=== PATIENT | male | born 1960 | race Caucasian/White ===

== ENCOUNTER 2018-02-25 18:04 | Emergency (ER) | payer BC ==
--- OUTSIDE RECORDS SUMMARY | 2018-02-25 18:20 | XMS REPORT ---
:1960 External Reference #:[id number] Author Organization [facility] Address [address] [facility]/[address] [place] [address] Phone [phone] Care Team Providers Name Role Phone Guillermina Villagomez MD Care Team Information [employer] Unavailable Payers Type Date Identification Numbers Payment Provider Subscriber Commercial Effective: Policy Number: BS [employer] Amrit Cates 2018 [id number] PayID: [id number] [address] [address] [place] [address] Problems Date Description Provider Status Onset: 09/16/2012 Chronic pansinusitis DavidFredy PEARL TECHNICIAN Active Onset: 09/16/2012 Low back pain Fredy Hernandez PEARL TECHNICIAN Active Onset: 09/16/2012 Degenerative joint disease involving Fredy Hernandez PEARL TECHNICIAN Active multiple joints Onset: 11/04/2014 Indigestion Guillermina Villagomez M.D. Active Onset: 11/04/2014 Peptic reflux disease Guillermina Villagomez M.D. Active Onset: 11/04/2014 Benign essential hypertension Guillermina Villagomez M.D. Active Onset: 11/04/2014 Idiopathic peripheral neuropathy Guillermina Villagomez M.D. Active Onset: 11/04/2014 Pain in limb Guillermina Villagomez M.D. Active Onset: 11/04/2014 Shoulder joint pain Guillermina Villagomez M.D. Active Onset: 11/04/2014 Neck pain Guillermina Villagomez M.D. Active Onset: 11/04/2014 Degeneration of lumbar intervertebral Guillermina Villagomez M.D. Active disc Family History Date Family Member(s) Problem(s) Comments Father due to Natural Causes () - 73 YO Mother 73 Mother Unknown Children 3 Social History Type Date Description Comments Marital Status Has been 1 time Occupation [employer] ETOH Use Rarely consumes alcohol Smoking Patient has never smoked IS AROUND OTHERS WHO SMOKE Daily Caffeine Consumes on average 4 cups of regular coffee per day Allergies, Adverse Reactions, Alerts Date Description Reaction Status Severity Comments 09/16/2012 NKDA active Medications Medication Date Status Form Strength Qnty SIG Indications Ordering Provider Prednisone 02/20/20 Hx Tablets 20mg 18tabs 3 tab by M51.37 Hernando, 18 - mouth Ahmad M., 02/28/20 daily 3 M.D. 18 days, then 2 tab daily x 3 d , then 1 tab daily 3d Hydrocodone-Ac 01/18/20 Active Tablets 10-325mg 90tabs 1 tab by M51.37 Hernando, etaminophen 18 mouth Ahmad M., three M.D. times a day as needed M79.605 M79.673 Sertraline HCL 03/29/2017 Active Tablets 50mg 90tabs take one F43.21 Hernando, tablet by Ahmad mouth Una M.Tin every day Ibu 11/14/2016 Active Tablets 800mg 90tabs Take One M51.37 Hernando, Tablet By Ahmad Mouth Oriana Heart.DKeiry Every 8 Hours With Food as Needed For Pain Gabapentin 01/18/2016 Active Capsules 300mg 90caps take one M54.17 Hernando, capsule by Ahmad mouth Una M.DKeiry twice a day Omeprazole 10/14/[address] 20mg 60caps Take Two K21.0 Hernando, Capsules Ahmad By Mouth M. M.D. Every Day Losartan 11/11/2014 Active Tablets 100-25 90tabs tab one by I10 Hernando, Potassium/Hydrochl mg mouth Ahmad orothiazide every in M., M.D. the morning Cyclobenzaprine 09/30/2014 Active Tablets 10mg 90tabs take one M51.37 Hernando, HCL tablet by Ahmad mouth Una MKeiryDKeiry three times a day as needed M54.5 M79.606 Prednisone Hx Tablets 20mg 18tabs 3 tab by mouth M79.673 Guillermina Villagomez 8 - daily 3 days, M., M.D. then 2 tab 8 daily x 3 d , then 1 tab daily 3d Zoloft Hx Tablets 50mg 30tabs 1 by mouth F43.21 Guillermina Villagomez 7 - every day M., M.D. 7 Prednisone Hx Tablets 20mg 18tabs 3 tab by mouth M51.37 Guillermina Villagomez 6 - daily 3 days, M., M.D. then 2 tab 6 daily x 3 d , then 1 tab daily 3d Omeprazole Hx Capsules DR 40mg 90caps 1 by mouth K21.0 Guillermina Villagomez 5 - every day M., M.D. 6 Gabapentin Hx Capsules 100mg 180caps tab 1-2 by M54.17 Guillermina Villagomez 5 - mouth three M., M.D. times a day [address] 40mg 30tabs 1 by mouth 530.11 Guillermina Villagomez 5 - every day M., M.D. 5 536.8 Hydrocodone-Acetaminophen 11/04/2014 Hx Tablets 10-325mg 150tabs 1-2 tab M79.606 Hernando, - by Ahmad 11/03/2016 mouth M., every 4 M.D. hours as needed M54.2 M51.37 Benicar HCT 10/15/2014 - Hx Tablets 40-25mg 90tabs tab one by 401.1 Hernando, 11/11/2014 mouth Ahmad M., every day M.D. No Active 09/30/2014 - Hx Unknown Medications 09/30/2014 Hydrocodone-Acet 09/30/2014 - Hx Tablets 7.5-325mg 90tabs tab one by 729.5 Hernando aminophen 11/04/2014 mouth Ahmad M., three M.D. times a day as needed 724.2 723.1 Benicar HCT 09/30/2014 - Hx Tablets 40-12.5mg Samples 1 by 401.1 Hernando, 10/15/2014 mouth Guillermina Heart, every day Sukhi Amoxicillin 09/16/2012 - Hx Tablets 500mg 28tabs 1Tab PO 473.8 Hernando, 09/30/2014 bid Guillermina Heart M.D. No Active 09/15/2012 Hx [facility], Medications Guillermina Heart M.D. Immunizations CPT Code Status Date Vaccine Lot # [id number] Given 06/15/2015 Flu Vaccine [id number] Given 09/29/2007 TDaP Vital Signs Date Vital Result Comment 02/19/2018 BP Systolic 120 mmHg BP Diastolic 78 mmHg Height 65 inches 5'5" Weight 193.00 lb BMI (Body Mass Index) 32.1 kg/m2 Heart Rate 78 /min 01/17/2018 BP Systolic 120 mmHg BP Diastolic 80 mmHg Height 65 inches 5'5" Weight 190.00 lb BMI (Body Mass Index) 31.6 kg/m2 Heart Rate 109 /min Respiratory Rate 16 /min 09/06/2017 BP Systolic 126 mmHg BP Diastolic 64 mmHg Height 65 inches 5'5" Weight 192.00 lb BMI (Body Mass Index) 31.9 kg/m2 Heart Rate 99 /min Respiratory Rate 16 /min 02/13/2017 BP Systolic 120 mmHg BP Diastolic 78 mmHg Height 65 inches 5'5" Weight 174.00 lb BMI (Body Mass Index) 29.0 kg/m2 Heart Rate 106 /min Respiratory Rate 16 /min 11/14/2016 BP Systolic 110 mmHg BP Diastolic 66 mmHg Height 65 inches 5'5" Weight 188.00 lb BMI (Body Mass Index) 31.3 kg/m2 Heart Rate 116 /min Respiratory Rate 16 /min 03/13/2016 BP Systolic 120 mmHg BP Diastolic 72 mmHg Height 65 inches 5'5" Weight 179.00 lb BMI (Body Mass Index) 29.8 kg/m2 Heart Rate 80 /min Body Temperature 97.1 F 02/15/2016 BP Systolic 130 mmHg BP Diastolic 74 mmHg Height 65 inches 5'5" Weight 170.00 lb BMI (Body Mass Index) 28.3 kg/m2 Heart Rate 74 /min 01/18/2016 BP Systolic 110 mmHg BP Diastolic 80 mmHg Height 65 inches 5'5" Weight 173.00 lb BMI (Body Mass Index) 28.8 kg/m2 Heart Rate 88 /min Respiratory Rate 16 /min 12/22/2015 BP Systolic 124 mmHg BP Diastolic 70 mmHg Height 65.25 inches 5'5.25" Weight 174.00 lb BMI (Body Mass Index) 28.7 kg/m2 Heart Rate 90 /min Respiratory Rate 16 /min 11/15/2015 BP Systolic 126 mmHg BP Diastolic 74 mmHg Height 65.25 inches 5'5.25" Weight 180.00 lb BMI (Body Mass Index) 29.7 kg/m2 Heart Rate 88 /min Respiratory Rate 16 /min 10/14/2015 BP Systolic 126 mmHg BP Diastolic 72 mmHg Height 65.25 inches 5'5.25" Weight 182.00 lb BMI (Body Mass Index) 30.1 kg/m2 Heart Rate 96 /min Respiratory Rate 20 /min 08/15/2015 BP Systolic 122 mmHg BP Diastolic 86 mmHg Height 65.25 inches 5'5.25" Weight 184.00 lb BMI (Body Mass Index) 30.4 kg/m2 Heart Rate 88 /min Respiratory Rate 20 /min 07/20/2015 BP Systolic 126 mmHg BP Diastolic 84 mmHg Height 65.25 inches 5'5.25" Weight 177.00 lb BMI (Body Mass Index) 29.2 kg/m2 Heart Rate 80 /min Respiratory Rate 20 /min 06/21/2015 BP Systolic 124 mmHg BP Diastolic 78 mmHg Height 65.25 inches 5'5.25" Weight 172.00 lb BMI (Body Mass Index) 28.4 kg/m2 Heart Rate 80 /min Respiratory Rate 20 /min 06/15/2015 BP Systolic 124 mmHg BP Diastolic 78 mmHg Height 65.25 inches 5'5.25" Weight 172.00 lb BMI (Body Mass Index) 28.4 kg/m2 Heart Rate 88 /min Body Temperature 99.2 F Respiratory Rate 20 /min 05/04/2015 BP Systolic 132 mmHg BP Diastolic 84 mmHg Height 65.25 inches 5'5.25" Weight 170.00 lb BMI (Body Mass Index) 28.1 kg/m2 Heart Rate 88 /min Respiratory Rate 16 /min 03/30/2015 BP Systolic 126 mmHg BP Diastolic 84 mmHg Height 65.25 inches 5'5.25" Weight 169.00 lb BMI (Body Mass Index) 27.9 kg/m2 Heart Rate 80 /min Respiratory Rate 20 /min 02/23/2015 BP Systolic 112 mmHg BP Diastolic 70 mmHg Height 65.25 inches 5'5.25" Weight 161.00 lb BMI (Body Mass Index) 26.6 kg/m2 Heart Rate 100 /min Respiratory Rate 16 /min 01/18/2015 BP Systolic 126 mmHg BP Diastolic 78 mmHg Height 65.25 inches 5'5.25" Weight 167.00 lb BMI (Body Mass Index) 27.6 kg/m2 Heart Rate 88 /min Respiratory Rate 20 /min 12/14/2014 BP Systolic 126 mmHg BP Diastolic 72 mmHg Height 65.25 inches 5'5.25" Weight 163.00 lb BMI (Body Mass Index) 26.9 kg/m2 Heart Rate 76 /min Respiratory Rate 16 /min 11/22/2014 BP Systolic 134 mmHg BP Diastolic 86 mmHg Height 65.25 inches 5'5.25" Weight 156.00 lb BMI (Body Mass Index) 25.8 kg/m2 Heart Rate 88 /min Respiratory Rate 16 /min 11/04/2014 BP Systolic 138 mmHg BP Diastolic 84 mmHg Height 65.25 inches 5'5.25" Weight 157.00 lb BMI (Body Mass Index) 25.9 kg/m2 Heart Rate 96 /min Respiratory Rate 16 /min 09/30/2014 BP Systolic 168 mmHg BP Diastolic 96 mmHg Height 65.25 inches 5'5.25" Weight 162.00 lb BMI (Body Mass Index) 26.7 kg/m2 Heart Rate 100 /min Respiratory Rate 20 /min 09/16/2012 BP Systolic 122 mmHg BP Diastolic 82 mmHg Height 65.25 inches 5'5.25" Weight 165.00 lb BMI (Body Mass Index) 27.2 kg/m2 Heart Rate 90 /min Body Temperature 98.3 F Respiratory Rate 20 /min Results Test Date Test Result H/L Range Note CBC With Diff 02/13/2017 WBC 6.7 10*3/uL (4.1-11.0) RBC 4.91 10*6/uL (4.60-6.10) HGB 15.0 g/dL (13.5-18.0) HCT 44.3 % (41.0-53.0) MCV 90.4 fL (80.0-95.0) MCH 30.5 pg (27.0-32.0) MCHC 33.8 g/dL (32.0-36.0) RDW 14.0 % (10.5-14.5) PLT 355 10*3/uL (150-450) MPV 7.8 fL (7.1-10.7) Neut % 67.0 % (35.0-75.0) Lymph % 20.5 % (16.0-52.0) Aiken % 9.7 % High (0.0-8.0) Eos % 2.0 % (0.0-5.0) Baso % 0.8 % (0.0-4.0) Neut # 4.5 10*3/uL (1.8-7.7) Lymph # 1.4 10*3/uL (1.2-4.8) Aiken # 0.7 10*3/uL (0.0-0.8) Eos # 0.1 10*3/uL (0.0-0.5) Baso # 0.1 10*3/uL (0.0-0.2) CMP 02/13/2017 Sodium 139 mmol/L (136-145) Potassium 3.5 mmol/L Low (3.6-5.2) Chloride 103 mmol/L (100-108) Co2 27 mmol/L (22-31) Anion Gap 9 mmol/L (7-16) Urea Nitrogen 17 mg/dL (7-24) Creatinine 1.01 mg/dL (0.80-1.30) BUN/Creat Ratio 16.8 RATIO (10.0-20.0) Glucose 90 mg/dL (70-99) Calcium 8.9 mg/dL (8.4-10.2) Total Protein 7.1 g/dL (6.4-8.2) Albumin 3.9 g/dL (3.5-4.6) Globulin 3.2 g/dL (2.7-4.3) Alb/Glob Ratio 1.2 RATIO Alkaline Phosphatase 88 U/L (45-117) Bilirubin,Total 0.7 mg/dL (0.0-1.0) Ast (Sgot) 26 U/L (11-39) Alt (SGPT) 40 U/L (12-78) GFR >60 ml/min/1.73m2 (>59) GFR ( Amer) >60 ml/min/1.73m2 (>59) GFR Interpretation <SEE NOTE> 1 Laboratory test finding 02/13/2017 TSH,Ultrasensitive @ 0.682 mIU/L ( 0.360-4.170) Hemoglobin A1c 02/13/2017 Hemoglobin A1c @ 5.4 % (4.0-6.0) Est Average Glucose 108 mg/dL 2 Lipid 02/13/2017 Cholesterol @ 204 mg/dL High (0-200) Triglyceride @ 87 mg/dL (30-200) HDL Cholesterol @ 59 mg/dL (>40) 3 Chol/HDL Ratio 3.5 RATIO 4 LDL Chol (Calc) 128 mg/dL (<130) 5 Laboratory test finding 02/13/2017 25 Hydroxy Vit D @ 25 ng/mL Low (31-100 ) 6 CBC With Diff 02/15/2016 WBC 4.9 10*3/uL (4.1-11.0) RBC 4.73 10*6/uL (4.60-6.10) HGB 13.9 g/dL (13.5-18.0) HCT 43.2 % (41.0-53.0) MCV 91.4 fL (80.0-95.0) MCH 29.5 pg (27.0-32.0) MCHC 32.3 g/dL (32.0-36.0) RDW 14.0 % (10.5-14.5) PLT 324 10*3/uL (150-450) MPV 7.8 fL (7.1-10.7) Neut % 55.8 % (35.0-75.0) Lymph % 31.2 % (16.0-52.0) Aiken % 10.7 % High (0.0-8.0) Eos % 1.1 % (0.0-5.0) Baso % 1.2 % (0.0-4.0) Neut # 2.7 10*3/uL (1.8-7.7) Lymph # 1.5 10*3/uL (1.2-4.8) Aiken # 0.5 10*3/uL (0.0-0.8) Eos # 0.1 10*3/uL (0.0-0.5) Baso # 0.1 10*3/uL (0.0-0.2) CMP 02/15/2016 Sodium 141 mmol/L (136-145) Potassium 4.1 mmol/L (3.6-5.2) Chloride 105 mmol/L (100-108) Co2 31 mmol/L (22-31) Anion Gap 5 mmol/L Low (7-16) Urea Nitrogen 14 mg/dL (7-24) Creatinine 0.91 mg/dL (0.80-1.30) BUN/Creat Ratio 15.4 RATIO (10.0-20.0) Glucose 84 mg/dL (70-99) Calcium 8.9 mg/dL (8.4-10.2) Total Protein 7.0 g/dL (6.4-8.2) Albumin 4.0 g/dL (3.5-4.6) Globulin 3.0 g/dL (2.7-4.3) Alb/Glob Ratio 1.3 RATIO Alkaline Phosphatase 97 U/L (45-117) Bilirubin,Total 0.7 mg/dL (0.0-1.0) Ast (Sgot) 22 U/L (11-39) Alt (SGPT) 48 U/L (12-78) GFR >60 ml/min/1.73m2 (>59) GFR ( Amer) >60 ml/min/1.73m2 (>59) GFR Interpretation <SEE NOTE> 7 Hemoglobin A1c 02/15/2016 Hemoglobin A1c @ 4.9 % (4.0-6.0) Est Average Glucose 94 mg/dL 8 Laboratory test finding 02/15/2016 TSH,Ultrasensitive @ 0.794 mIU/L ( 0.360-4.170) 25 Hydroxy Vit D @ 30 ng/mL Low (31-100) 9 Uric Acid 3.8 mg/dL (3.5-7.2) PSA,Total Screen @ 1.3 ng/mL (0.0-4.0) 10 Laboratory test 07/20/2015 TSH,Ultrasensitive @ 1.030 mIU/L (0.360-4.170 ) finding Lipid 07/20/2015 Cholesterol @ 220 mg/dL High (0-200) Triglyceride @ 116 mg/dL (30-200) HDL Cholesterol @ 72 mg/dL (>40) 11 Chol/HDL Ratio 3.1 RATIO 12 LDL Chol (Calc) 125 mg/dL (<130) 13 CMP 07/20/2015 Sodium 140 mmol/L (136-145) Potassium 4.6 mmol/L (3.6-5.2) Chloride 102 mmol/L (100-108) Co2 31 mmol/L (22-31) Anion Gap 7 mmol/L (7-16) Urea Nitrogen 15 mg/dL (7-24) Creatinine 1.06 mg/dL (0.80-1.30) BUN/Creat Ratio 14.2 RATIO (10.0-20.0) Glucose 100 mg/dL High (70-99) Calcium 8.9 mg/dL (8.4-10.2) Total Protein 7.1 g/dL (6.4-8.2) Albumin 4.1 g/dL (3.5-4.6) Globulin 3.0 g/dL (2.7-4.3) Alb/Glob Ratio 1.4 RATIO Alkaline Phosphatase 83 U/L (45-117) Bilirubin,Total 0.5 mg/dL (0.0-1.0) Ast (Sgot) 27 U/L (11-39) Alt (SGPT) 65 U/L (12-78) GFR >60 ml/min/1.73m2 (>59) GFR ( Amer) >60 ml/min/1.73m2 (>59) GFR Interpretation <SEE NOTE> 14 CBC With Diff 07/20/2015 WBC 5.8 10*3/uL (4.1-11.0) RBC 4.79 10*6/uL (4.60-6.10) HGB 14.7 g/dL (13.5-18.0) HCT 44.1 % (41.0-53.0) MCV 92.1 fL (80.0-95.0) MCH 30.7 pg (27.0-32.0) MCHC 33.3 g/dL (32.0-36.0) RDW 13.1 % (10.5-14.5) PLT 329 10*3/uL (150-450) MPV 7.3 fL (7.1-10.7) Neut % 63.1 % (35.0-75.0) Lymph % 24.4 % (16.0-52.0) Aiken % 10.0 % High (0.0-8.0) Eos % 1.5 % (0.0-5.0) Baso % 1.0 % (0.0-4.0) Neut # 3.7 10*3/uL (1.8-7.7) Lymph # 1.4 10*3/uL (1.2-4.8) Aiken # 0.6 10*3/uL (0.0-0.8) Eos # 0.1 10*3/uL (0.0-0.5) Baso # 0.1 10*3/uL (0.0-0.2) Laboratory test finding 07/20/2015 Magnesium 2.1 mg/dL (1.7-2.4) Lipid 02/23/2015 Cholesterol @ 197 mg/dL (0-200) Triglyceride @ 157 mg/dL (30-200) HDL Cholesterol @ 60 mg/dL (>40) 15 Chol/HDL Ratio 3.3 RATIO 16 LDL Chol (Calc) 106 mg/dL (<130) 17 CBC With Diff 02/23/2015 WBC 4.9 10*3/uL (4.1-11.0) RBC 4.76 10*6/uL (4.60-6.10) HGB 14.9 g/dL (13.5-18.0) HCT 44.0 % (41.0-53.0) MCV 92.5 fL (80.0-95.0) MCH 31.4 pg (27.0-32.0) MCHC 33.9 g/dL (32.0-36.0) RDW 13.3 % (10.5-14.5) PLT 286 10*3/uL (150-450) MPV 7.6 fL (7.1-10.7) Neut % 64.3 % (35.0-75.0) Lymph % 22.0 % (16.0-52.0) Aiken % 10.9 % High (0.0-8.0) Eos % 2.0 % (0.0-5.0) Baso % 0.8 % (0.0-4.0) Neut # 3.1 10*3/uL (1.8-7.7) Lymph # 1.1 10*3/uL Low (1.2-4.8) Aiken # 0.5 10*3/uL (0.0-0.8) Eos # 0.1 10*3/uL (0.0-0.5) Baso # 0.0 10*3/uL (0.0-0.2) Laboratory test finding 02/23/2015 TSH,Ultrasensitive @ 0.572 mIU/L ( 0.360-4.170) Hemoglobin A1c 02/23/2015 Hemoglobin A1c @ 5.0 % (4.0-6.0) Est Average Glucose 97 mg/dL 18 CMP 02/23/2015 Sodium 139 mmol/L (136-145) Potassium 4.0 mmol/L (3.6-5.2) Chloride 97 mmol/L Low (100-108) Co2 32 mmol/L High (22-31) Anion Gap 10 mmol/L (7-16) Urea Nitrogen 13 mg/dL (7-24) Creatinine 1.0 mg/dL (0.8-1.3) BUN/Creat Ratio 13.0 RATIO (10.0-20.0) Glucose 87 mg/dL (70-99) Calcium 9.3 mg/dL (8.4-10.2) Total Protein 6.9 g/dL (6.4-8.2) Albumin 3.8 g/dL (3.5-4.6) Globulin 3.1 g/dL (2.7-4.3) Alb/Glob Ratio 1.2 RATIO Alkaline Phosphatase 87 U/L (45-117) Bilirubin,Total 0.5 mg/dL (0.0-1.0) Ast (Sgot) 20 U/L (11-39) Alt (SGPT) 40 U/L (12-78) GFR 82 ml/min/1.73m2 (>59) GFR ( Amer) >90 ml/min/1.73m2 (>59) GFR Interpretation <SEE NOTE> 19 CBC With Diff 09/30/2014 WBC 6.5 10*3/uL (4.1-11.0) RBC 4.82 10*6/uL (4.60-6.10) HGB 14.7 g/dL (13.5-18.0) HCT 44.1 % (41.0-53.0) MCV 91.6 fL (80.0-95.0) MCH 30.6 pg (27.0-32.0) MCHC 33.4 g/dL (32.0-36.0) RDW 13.3 % (10.5-14.5) PLT 274 10*3/uL (150-450) MPV 7.9 fL (7.1-10.7) Neut % 64.2 % (35.0-75.0) Lymph % 21.1 % (16.0-52.0) Aiken % 11.4 % High (0.0-8.0) Eos % 2.0 % (0.0-5.0) Baso % 1.3 % (0.0-4.0) Neut # 4.2 10*3/uL (1.8-7.7) Lymph # 1.4 10*3/uL (1.2-4.8) Aiken # 0.7 10*3/uL (0.0-0.8) Eos # 0.1 10*3/uL (0.0-0.5) Baso # 0.1 10*3/uL (0.0-0.2) Laboratory test finding 09/30/2014 Troponin I <0.06 ng/mL (0.00-0.10) 20 CRP, Sensitive @ 0.8 mg/L 21 CK 135 U/L (39-308) Lipid 09/30/2014 Cholesterol @ 205 mg/dL High (0-200) Triglyceride @ 198 mg/dL (30-200) HDL Cholesterol @ 61 mg/dL (>40) 22 Chol/HDL Ratio 3.4 RATIO 23 LDL Chol (Calc) 104 mg/dL (<130) 24 CMP 09/30/2014 Sodium 145 mmol/L (136-145) Potassium 4.0 mmol/L (3.6-5.2) Chloride 110 mmol/L High (100-108) Co2 29 mmol/L (22-31) Anion Gap 6 mmol/L Low (7-16) Urea Nitrogen 15 mg/dL (7-24) Creatinine 0.9 mg/dL (0.8-1.3) BUN/Creat Ratio 16.7 RATIO (10.0-20.0) Glucose 102 mg/dL High (70-99) Calcium 9.0 mg/dL (8.4-10.2) Total Protein 6.7 g/dL (6.4-8.2) Albumin 3.7 g/dL (3.5-4.6) Globulin 3.0 g/dL (2.7-4.3) Alb/Glob Ratio 1.2 RATIO Alkaline Phosphatase 84 U/L (45-117) Bilirubin,Total 0.3 mg/dL (0.0-1.0) Ast (Sgot) 17 U/L (11-39) Alt (SGPT) 35 U/L (12-78) GFR >90 ml/min/1.73m2 (>59) GFR ( Amer) >90 ml/min/1.73m2 (>59) GFR Interpretation <SEE NOTE> 25 1 NORMAL KIDNEY FUNCTION OR MILD DISEASE - GFR >OR=60 CHRONIC KIDNEY DISEASE - GFR 15 - 59 RENAL FAILURE - GFR <15 Est. GFR calculation based on the MDRD study equation, which assumes a steady state for creatinine. Est. GFR should not be used for medication dosing. 2 HEMOGLOBIN A1c INTERPRETATION: 4.0-6.0% GOOD GLYCEMIC CONTROL 6.1-6.5% AT RISK FOR HYPERGLYCEMIA >6.5% DIABETIC/ POOR GLYCEMIC CONTROL REFERENCE: DIABETES CARE 32(7), 2009 IF A1c RESULT IS INCONSISTENT WITH CLINICAL ESTIMATES OF GLYCEMIC CONTROL, AN INTERFERING Hb VARIANT SHOULD BE CONSIDERED. 3 PER NCEP ATP III GUIDELINES: RESULTS LOWER THAN 40 MG/DL ARE SUGGESTIVE OF INCREASED RISK FOR CORONARY ARTERY DISEASE. RESULTS > OR=TO 60 MG/DL ARE CONSIDERED A NEGATIVE RISK FACTOR. 4 INTERPRETATION OF CHOL-HDL RATIO CHD RISK FEMALE MALE VERY HIGH >8.3 >14.3 HIGH 5.6- 8.3 6.7- 14.3 AVERAGE 3.7- 5.6 4.0- 6.7 BELOW AVERAGE 2.5- 3.7 2.7- 4.0 PROTECTED <2.5 <2.7 5 PER NCEP ATP III GUIDELINES: OPTIMAL < 100 NEAR OPTIMAL 100 - 129 BORDERLINE HIGH 130 - 159 HIGH 160 - 189 VERY HIGH > 189 6 A REVIEW OF THE LITERATURE SUGGESTS THE FOLLOWING RANGES FOR THE CLASSIFICATION OF 25-OH VITAMIN D STATUS: VITAMIN D STATUS 25-OH VITAMIN D DEFICIENCY <20 NG/ML INSUFFICIENCY 20-30 NG/ML SUFFICIENCY 31 - 100 NG/ML TOXICITY > 100 NG/ML A PEDIATRIC REFERENCE RANGE HAS NOT BEEN ESTABLISHED USING THIS METHOD. 7 NORMAL KIDNEY FUNCTION OR MILD DISEASE - GFR >OR=60 CHRONIC KIDNEY DISEASE - GFR 15 - 59 RENAL FAILURE - GFR <15 Est. GFR calculation based on the MDRD study equation, which assumes a steady state for creatinine. Est. GFR should not be used for medication dosing. 8 HEMOGLOBIN A1c INTERPRETATION: 4.0-6.0% GOOD GLYCEMIC CONTROL 6.1-6.5% AT RISK FOR HYPERGLYCEMIA >6.5% DIABETIC/ POOR GLYCEMIC CONTROL REFERENCE: DIABETES CARE 32(7), 2009 IF A1c RESULT IS INCONSISTENT WITH CLINICAL ESTIMATES OF GLYCEMIC CONTROL, AN INTERFERING Hb VARIANT SHOULD BE CONSIDERED. 9 A REVIEW OF THE LITERATURE SUGGESTS THE FOLLOWING RANGES FOR THE CLASSIFICATION OF 25-OH VITAMIN D STATUS: VITAMIN D STATUS 25-OH VITAMIN D DEFICIENCY <20 NG/ML INSUFFICIENCY 20-30 NG/ML SUFFICIENCY 31 - 100 NG/ML TOXICITY > 100 NG/ML A PEDIATRIC REFERENCE RANGE HAS NOT BEEN ESTABLISHED USING THIS METHOD. 10 IN 20% OF CASES W/ BPH, PSA MAY BE 10 NG/ML OR MORE. SERUM PSA CONCENTRATION SHOULD NOT BE INTERPRETED ABSOLUTE EVIDENCE FOR THE PRESENCE OR ABSENCE OF MALIGNANT DISEASE. METHOD IS [email or web address] ACCESS/DXI EQUIMOLAR ASSAY. VALUES OBTAINED WITH DIFFERENT ASSAY METHODS OR KITS CANNOT BE USED INTERCHANGEABLY. 11 PER NCEP ATP III GUIDELINES: RESULTS LOWER THAN 40 MG/DL ARE SUGGESTIVE OF INCREASED RISK FOR CORONARY ARTERY DISEASE. RESULTS > OR=TO 60 MG/DL ARE CONSIDERED A NEGATIVE RISK FACTOR. 12 INTERPRETATION OF CHOL-HDL RATIO CHD RISK FEMALE MALE VERY HIGH >8.3 >14.3 HIGH 5.6- 8.3 6.7- 14.3 AVERAGE 3.7- 5.6 4.0- 6.7 BELOW AVERAGE 2.5- 3.7 2.7- 4.0 PROTECTED <2.5 <2.7 13 PER NCEP ATP III GUIDELINES: OPTIMAL < 100 NEAR OPTIMAL 100 - 129 BORDERLINE HIGH 130 - 159 HIGH 160 - 189 VERY HIGH > 189 14 NORMAL KIDNEY FUNCTION OR MILD DISEASE - GFR >OR=60 CHRONIC KIDNEY DISEASE - GFR 15 - 59 RENAL FAILURE - GFR <15 Est. GFR calculation based on the MDRD study equation, which assumes a steady state for creatinine. Est. GFR should not be used for medication dosing. 15 PER NCEP ATP III GUIDELINES: RESULTS LOWER THAN 40 MG/DL ARE SUGGESTIVE OF INCREASED RISK FOR CORONARY ARTERY DISEASE. RESULTS > OR=TO 60 MG/DL ARE CONSIDERED A NEGATIVE RISK FACTOR. 16 INTERPRETATION OF CHOL-HDL RATIO CHD RISK FEMALE MALE VERY HIGH >8.3 >14.3 HIGH 5.6- 8.3 6.7- 14.3 AVERAGE 3.7- 5.6 4.0- 6.7 BELOW AVERAGE 2.5- 3.7 2.7- 4.0 PROTECTED <2.5 <2.7 17 PER NCEP ATP III GUIDELINES: OPTIMAL < 100 NEAR OPTIMAL 100 - 129 BORDERLINE HIGH 130 - 159 HIGH 160 - 189 VERY HIGH > 189 18 HEMOGLOBIN A1c INTERPRETATION: 4.0-6.0% GOOD GLYCEMIC CONTROL 6.1-6.5% AT RISK FOR HYPERGLYCEMIA >6.5% DIABETIC/ POOR GLYCEMIC CONTROL REFERENCE: DIABETES CARE 32(7), 2009 IF A1c RESULT IS INCONSISTENT WITH CLINICAL ESTIMATES OF GLYCEMIC CONTROL, AN INTERFERING Hb VARIANT SHOULD BE CONSIDERED. 19 NORMAL KIDNEY FUNCTION OR MILD DISEASE - GFR >OR=60 CHRONIC KIDNEY DISEASE - GFR 15 - 59 RENAL FAILURE - GFR <15 Est. GFR calculation based on the MDRD study equation, which assumes a steady state for creatinine. Est. GFR should not be used for medication dosing. 20 TROPONIN LEVELS TWO TIMES THE UPPER LIMIT OF NORMAL ARE MORE PREDICTIVE OF MYOCARDIAL INJURY THAN LESSER ELEVATIONS. ([facility] 361:9, 2009) 21 RELATIVE RISK CATEGORY AND AVERAGE hs-CRP LEVEL: LOW RISK < 1.0 MG/L AVERAGE RISK 1.0 to 3.0 MG/L HIGH RISK > 3.0 MG/L 22 PER NCEP ATP III GUIDELINES: RESULTS LOWER THAN 40 MG/DL ARE SUGGESTIVE OF INCREASED RISK FOR CORONARY ARTERY DISEASE. RESULTS > OR=TO 60 MG/DL ARE CONSIDERED A NEGATIVE RISK FACTOR. 23 INTERPRETATION OF CHOL-HDL RATIO CHD RISK FEMALE MALE VERY HIGH >8.3 >14.3 HIGH 5.6- 8.3 6.7- 14.3 AVERAGE 3.7- 5.6 4.0- 6.7 BELOW AVERAGE 2.5- 3.7 2.7- 4.0 PROTECTED <2.5 <2.7 24 PER NCEP ATP III GUIDELINES: OPTIMAL < 100 NEAR OPTIMAL 100 - 129 BORDERLINE HIGH 130 - 159 HIGH 160 - 189 VERY HIGH > 189 25 NORMAL KIDNEY FUNCTION OR MILD DISEASE - GFR >OR=60 CHRONIC KIDNEY DISEASE - GFR 15 - 59 RENAL FAILURE - GFR <15 Est. GFR calculation based on the MDRD study equation, which assumes a steady state for creatinine. Est. GFR should not be used for medication dosing. Procedures Date CPT Code Description Status 02/13/2017 08373 EKG Completed 09/30/2014 85706 EKG Completed Encounters Type Date Location Provider CPT E/M Dx Office Visit 02/19/2018 2:00p Guillermina Garcia M.D. [id number] I10 E78.2 M51.37 M15.9 R73.01 K21.0 M54.17 N40.1 E55.9 M25.512 K30 M25.519 M54.2 M79.605 R60.0 M79.606 M79.643 F43.21 M79.673 Office Visit 01/17/2018 2:45p Guillermina Garcia M.D. 55702 I10 E78.2 M51.37 M15.9 R73.01 K21.0 M54.17 N40.1 E55.9 M25.512 K30 M25.519 M54.2 M79.605 R60.0 M79.606 M79.643 F43.21 M79.673 Office Visit 09/06/2017 2:00[place] [address] M51.37 M25.512 K30 M25.519 M54.2 I10 M79.605 R60.0 M79.606 M79.643 M15.9 R73.01 K21.0 M54.17 E78.2 E55.9 N40.1 F43.21 Office Visit 02/13/2017 9:15a Guillermina Garcia M.D. 81351 M51.37 M25.512 K30 M25.519 M54.2 I10 M79.605 R60.0 M79.606 M79.643 Z68.23 M15.9 R73.01 K21.0 M54.17 E78.2 E55.9 N40.1 F43.21 Z00.01 Office Visit 11/14/2016 3:15p Guillermina Garcia M.D. 01823 M51.37 M25.512 K30 M25.519 M54.2 I10 M79.605 R60.0 M79.606 M79.643 M15.9 R73.01 K21.0 M54.17 E78.2 E55.9 N40.1 Office Visit 03/13/2016 11:00a Fredy Quigley [facility] [address]771 M51.37 M25.512 K30 M25.519 M54.2 I10 Office Visit 02/15/2016 9:15a Guillermina Garcia M.D. 93277 M51.37 M25.512 K30 M25.519 M79.605 R60.0 M54.2 I10 M79.606 M79.643 M15.9 R73.01 K21.0 M54.17 E78.2 E55.9 N40.1 Office Visit 01/18/2016 1:45p Guillermina Garcia M.D. 91458 M51.37 M25.512 K30 M25.519 M79.605 R60.0 M54.2 I10 M79.606 M79.643 M15.9 R73.01 K21.0 M54.17 Office Visit 12/22/2015 1:45p Fredy Quigley [facility] 61859 M51.37 M54.5 M25.512 K30 M25.519 Office Visit 11/15/2015 11:00a Guillermina Garcia M.D. [id number] M79.605 M51.37 M54.5 M25.512 K30 R60.0 M25.519 M54.2 I10 M79.606 G60.8 M79.643 M15.9 R73.01 K21.0 Office Visit 10/14/2015 11:15a Fredy Quigley [facility] [address]20 K21.0 M79.605 M51.37 M54.5 M25.512 Office Visit 08/15/2015 8:30a Guillermina Garcia M.D. 65091 M79.605 M51.37 K21.0 K30 R60.0 M25.519 M54.5 M54.2 I10 M79.606 G60.8 M79.643 M15.9 R73.01 Office Visit 07/20/2015 2:00p Guillermina Garcia M.D. 94352 M79.605 M51.37 K21.0 K30 R60.0 M25.519 M54.5 M54.2 I10 M79.606 G60.8 M79.643 M15.9 Office Visit 06/21/2015 1:45p Vanita David Fredy [facility] 14747 M25.512 M79.605 M51.37 K21.0 Office Visit 06/15/2015 11:30a Guillermina Garcia M.D. 71537 R60.0 M79.605 M51.37 K21.0 M25.519 M54.5 M54.2 I10 M79.606 G60.8 K30 M79.643 M15.9 Z23 Office Visit 05/04/2015 10:30a Guillermina Garcia M.D. 92476 R60.0 M51.37 K21.0 M25.519 M54.5 M54.2 I10 M79.606 G60.8 K30 M79.643 M15.9 Office Visit 03/30/2015 10:00a Guillermina Garcia M.D. 36070 782.3 722.52 530.11 719.41 724.2 723.1 401.1 729.5 356.8 Office Visit 02/23/2015 11:15a Fredy Quigley [facility] 74618 722.52 530.11 719.41 724.2 723.1 401.1 729.5 356.8 Office Visit 01/18/2015 11:00a Fredy Quigley [facility] 63196 724.2 722.52 723.1 401.1 530.11 Office Visit 12/14/2014 9:15a Guillermina Garcia M.D. 89622 724.2 722.52 723.1 719.41 729.5 401.1 356.8 530.11 536.8 719.44 Office Visit 11/22/2014 4:15p Guillermina Garcia M.D. 61441 724.2 722.52 723.1 719.41 729.5 401.1 356.8 530.11 536.8 719.44 Office Visit 11/04/2014 9:00a Guillermina Garcia M.D. 86758 724.2 722.52 723.1 719.41 729.5 356.8 401.1 530.11 536.8 786.59 Office Visit 09/30/2014 2:30p Fredy Quigley [facility] 41122 786.59 722.52 530.11 715.09 723.1 401.1 Office Visit 09/16/2012 3:15p Fredy Quigley [facility] 75428 473.8 724.2 715.09 Plan of Care 02/19/2018 - Guillermina Villagomez M.D.I10 Essential (primary) hypertensionComments: CHECK BP TIW ( PRN)F/U LABDIET AND FLUID COUNSELING LOW SODIUM DIETWT LOSSF/U LABE78.2 Mixed hyperlipidemiaComments:DIET REVIEWED CONTINUE DIETWT LOSSF/U LAB FBWM51.37 Other intervertebral disc degeneration, lumbosacral regionNew Medication:Prednisone 20 mgComments:EXERCISE/HEAT /MESSAGEAVOID HEAVY LIFTING WT LOSSTYLENOL OR MOTRIN PRN DUR CHECKEDFollow up:2 weeks.M15.9 Polyosteoarthritis, unspecifiedComments:EXERCISE/HEAT/MESSAGETYLENOL OR MOTRIN PRNAVOID HEAVY LIFTINGWT LOSS DUR PHKKXHWT00.01 Impaired fasting glucoseComments :F/U HGAICFS QAC AN HS PRNLOW GLUCOSE DIETK21.0 Gastro-esophageal reflux disease with esophagitisComments:AVOID CAFFEINE, ETOH AND SPICY FOODSTUMS OR MYLANTA PRN CALL WITH PROBLEMS OR NDYSRWWIP27.17 Radiculopathy, lumbosacral regionComments:EXERCISE/HEAT /MESSAGE AVOID HEAVY LIFTING WT LOSS TYLENOL OR MOTRIN PRNN40.1 Benign prostatic hyperplasia with lower urinary tract sympComments:BXLAGYTX37.9 Vitamin D deficiency, unspecifiedComments:INCREASE EXPOSURE TO SUNREVIEW OF DIETM25.512 Pain in left shoulderComments:(S/P L SHOILDER ROTATOR CUFF TEAR REPAIR 08/01/15 -- CASE)K30 Functional dyspepsiaComments:AVOID CAFFEINE, ETOH AND SPICY FOODSTUMS OR MYLANTA PRN CALL WITH PROBLEMS OR BCMSSJEPN18.519 Pain in unspecified shoulderComments:EXERCISE/ HEAT /MESSAGE AVOID HEAVY LIFTINGTYLENOL OR MOTRIN PRN DUR ZOJVSCIB20.2 CervicalgiaComments:EXERCISE/HEAT /MESSAGEAVOID HEAVY LIFTING WT LOSSTYLENOL OR MOTRIN PRN DUR VTSPLVRQ49.605 Pain in left legComments:TYLENOL OR MOTRIN PRN EXERCISE/HEAT/MESSAGE DUR VTDTDEJY09.0 Localized edemaComments:ELEVATE LE PRNELASTIC STOCKING / BRI WRAP PRNF/U LAB QKHEALW06.606 Pain in leg, unspecifiedComments:TYLENOL OR MOTRIN PRN EXERCISE/HEAT/MESSAGE DUR QQLUZEEE77.643 Pain in unspecified handComments:EXERCISE/HEAT/MESSAGETYLENOL OR MOTRIN PRNAVOID HEAVY LIFTINGWT LOSS DUR SONFVAIX14.21 Adjustment disorder with depressed moodComments:COUNCELLING AND REASSURANCE EXTENDED RELAXATION TECHNIQUES DISCUSSED COUNSELED RE: STRESSORS IN LIFEM79.673 Pain in unspecified footComments:TYLENOL OR MOTRIN PRN EXERCISE/HEAT/MESSAGE DUR CHECKED
[2018-02-25 18:34] VITALS: BP 146/96
[2018-02-25] MEDS ORDERED: Lidocaine 1% MPF wEPI 200,000* 30 ML SDV INJ ONE (18:35)
--- NOTE | 2018-02-25 18:37 | UC ---
Laceration HPI - HPI Summary HPI Summary: Patient presents to urgent care with acute laceration his left anterior werner. Patient was moving a mirror from intestinal wall. Patient states for from his arm slipped on leg causing a laceration. Patient did not clean the wound apply pressure prior to arrival. Patient is not immunocompromised. Patient is not on blood thinners. Patient's tetanus was in 2016. Patient denies pain. Patient without any other injuries or concerns. Patient's medications reviewed this visit - History Of Current Complaint Chief Complaint: UCLaceration Stated Complaint: LEFT LEG LACERATION Time Seen by Provider: 02/25/18 18:23 Hx Obtained From: Patient Laceration Location: Generalized - left lower leg Severity: Mild Pain Intensity: 0 - Allergies/Home Medications Allergies/Adverse Reactions: Allergies Allergy/AdvReac Type Severity Reaction Status Date / Time No Known Allergies Allergy Verified 04/13/16 15:09 Home Medications: Home Medications Ibuprofen 800 mg PO Q8H 02/25/18 [History Confirmed 02/25/18] PMH/Surg Hx/FS Hx/Imm Hx Previously Healthy: Yes - Surgical History Surgical History: Yes Surgery Procedure, Year, and Place: back surgery - Family History Known Family History: Positive: Cardiac Disease - Social History Occupation: Employed Full-time Lives: With Family Alcohol Use: Rare Substance Use Type: Marijuana Substance Use Comment - Amount & Last Used: daily usage Smoking Status (MU): Never Smoked Tobacco - Immunization History Most Recent Tetanus Shot: 04/03/16 Review of Systems Constitutional: Negative Skin: Other - laceratioin Is Patient Immunocompromised?: No All Other Systems Reviewed And Are Negative: Yes Physical Exam - Summary Physical Exam Summary: Vital Signs Reviewed: Yes A+Ox3, no distress Eyes: Conjunctiva Clear ENT: Hearing grossly normal neck: supple Respiratory: Positive: No respiratory distress, No accessory muscle use Cardiovascular: skin color reflect adequate perfusion Musculoskeletal Exam: GONZALEZ x 4 without difficulty into tray without difficulty. Straight leg left lower. Flex extend knee and ankle without difficulty. Neurological: Positive: Alert, ambulatory without difficulty Psychological: Positive: Normal Response To Family Skin: Positive: Patient with a 5 cm V-shaped skin flap laceration to his left mid anterior werner. Ira of the V is proximal. Bleeding controlled. Ira of wound is superficial with the lungs sides into subcutaneous tissue and is suturable Triage Information Reviewed: Yes Appearance: Well-Appearing Vital Signs: Initial Vital Signs Temp 97.2 F 02/25/18 18:21 Pulse 100 02/25/18 18:21 Resp 18 02/25/18 18:21 BP 146/96 02/25/18 18:21 Pulse Ox 99 02/25/18 18:21 Vital Signs Reviewed: Yes Laceration Repair - Laceration Repair 1 Procedure Summary: verbal permission to treat time out completed with RN at bedside pt prepped in usual, sterile fashion copious irrigation with 300ml sterile saline under pressure Good approximation of long sides with simple interrupted d/w at length regarding proximal apex of wound - may not survive due to compromised secured with steristrips wound covered with vasoline gauze, 4x4 and coban. Pt given claudia to wear for protection at work - mosley pt tolerated well reviewed with pt wound care s/s infection return precautions Description: Linear Laceration Size After Repair: Length (cm) - 5 Modified For Repair: No Type Injection: Local Anesthesia Used: 1.0% Lido - 4.5mL Additive Used (in ml): Epi Cleansing Completed Via Routine Prep: Yes Irrigation With Pressure Irrigation Device: Yes Closure Material: SteriStrips - apex, prox, Sutures - #9 Closure Method: Single Layer Suture Of: Skin Suture Type: Nylon - 4-0 Laceration Course/Dx - Course/Dx Course Of Treatment: Patient with 5 cm V-shaped laceration caused by a mirror that fell prior to arrival. Wound closed with good approximation. Extensive discussion with patient regarding wound care, elevation, Motrin/Tylenol, Augmentin. Elevate. Patient has appointment with primary care next week recommend wound be checked at this time. Patient with a proximal flap may not survive due to vascular insufficiency. Patient comfortable and states understanding. Sutures out in 10 days. Strict return precautions discussed. 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 Patient states understanding. - Differential Dx - Laceration/Wound Provider Diagnoses: leg laceration, left Discharge - Sign-Out/Discharge Documenting (check all that apply): Patient Departure - Discharge Plan Condition: Stable Disposition: HOME Prescriptions: Amoxicillin/Clavulanate TAB* [Augmentin TAB 875*] 875 mg PO BID #20 tab Patient Education Materials: Laceration (ED) Referrals: Guillermina Villagomez MD [Primary Care Provider] - Additional Instructions: - your stitches should come out in 10 days - you can return here, go to your Doctor or any urgent care center - okay to alternate ibuprofin (advil, motrin)600mg and tylenol 1000mg every 3hours as needed for pain -Anticipate increased discomfort over the next several hours as the numbing medication wears off -Keep your wound clean and dry - no soaking for 24 hours. Then, okay for wound to get wet - pat dry, don't rub -apply a layer of antibiotic ointment (neosporin, polysporin) 2-3 times a day, gauze and then wrap. It is recommended when at work, you cover with an claudia bandage to keep it clean - when you have a cut, you will have a scar. To minimize scar formation - keep your wound clean - monitor for signs of infection - reddness, red streaking, odor, green drainage - elevate your leg to help with swelling and pain - Have your doctor look at your wound at your appointment next week. As discussed, the top of the flap may because skin is thin - this can be trimmed at your follow-up appointment as needed - Contact your doctor or return here with questions or concerns - Billing Disposition and Condition Condition: STABLE Disposition: Home
[2018-02-25] MEDS ORDERED: Lidocaine 1% MPF wEPI 200,000* 30 ML SDV ONE (18:39)
[2018-02-25] MEDS ORDERED: Amoxicillin/Clavulanate TAB* 875 MG PO ONE (19:20)
[2018-02-25] MEDS ORDERED: Acetaminophen TAB* 325 MG PO ONE (19:20)
== END 2018-02-25 19:35 | disposition home or self-care (01) ==
LOC: UCCORT 18:04
DX: S81.812A Laceration without foreign body, left lower leg, initial encounter (principal); W25.XXXA Contact with sharp glass, initial encounter; Y93.89 Activity, other specified; Y92.9 Unspecified place or not applicable; Z82.49 Family history of ischemic heart disease and other diseases of the circulatory system
CPT/HCPCS: 12002; 99212; A9270-GY; G0463; J2001

== ENCOUNTER 2018-03-07 14:30 | Emergency (ER) | payer BC ==
--- OUTSIDE RECORDS SUMMARY | 2018-03-07 15:34 | XMS REPORT ---
:1960 External Reference #:[id number] Author Organization [facility] 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 times a day as needed M79.605 M79.673 Sertraline HCL 03/29/2017 Active Tablets 50mg 90tabs take one F43.21 Hernando, tablet by Ahmad mouth [facility] every day Ibu 11/14/2016 Active Tablets 800mg 90tabs Take One M51.37 Hernando, Tablet By Ahmad Mouth [facility] Every 8 Hours With Food as Needed For Pain Gabapentin 01/18/2016 Active Capsules 300mg 90caps take one M54.17 Hernando, capsule by Ahmad mouth [facility] twice a day Omeprazole 10/14/[address] 20mg 60caps Take Two K21.0 Hernando, Capsules Ahmad By Mouth [facility].DKeiry Every Day Losartan 11/11/2014 Active Tablets 100-25 90tabs tab one by I10 Hernando, Potassium/Hydrochl mg mouth Ahmad orothiazide every in M., M.D. the morning Cyclobenzaprine 09/30/2014 Active Tablets 10mg 90tabs Take One M51.37 Hernando, HCL Tablet By Ahmad Mouth [facility] Three Times A Day as Needed M54.5 M79.606 Prednisone Hx Tablets 20mg 18tabs 3 tab by mouth M51.37 Hernando , Ahmad 8 - daily 3 days, M. MKeiryD. then 2 tab 8 daily x 3 d , then 1 tab daily 3d Prednisone Hx Tablets 20mg 18tabs 3 tab [...] Guillermina Heart M.D. No Active 09/15/2012 Hx [facility], Medications Guillermina Heart M.D. Immunizations CPT Code Status Date Vaccine Lot # 53218 Given 06/15/2015 Flu Vaccine [id number] Given 09/29/2007 TDaP Vital Signs Date Vital Result Comment 03/05/2018 BP Systolic 142 mmHg BP Diastolic 70 mmHg Height 65 inches 5'5" Weight 186.00 lb BMI (Body Mass Index) 30.9 kg/m2 Heart Rate 104 /min Respiratory Rate 16 /min 02/19/2018 BP Systolic 120 mmHg BP Diastolic [...] Test Date Test Result H/L Range Note Laboratory test finding 03/05/2018 TSH, Ultrasenstive <pending> Laboratory test finding 03/05/2018 Hemoglobin A1c <pending> Vitamin D 25 Hydroxy <pending> Laboratory test finding 02/13/2017 25 Hydroxy Vit D @ 25 ng/mL Low (31-100 ) 1 Lipid 02/13/2017 Cholesterol @ 204 mg/dL High (0-200) Triglyceride @ 87 mg/dL (30-200) HDL Cholesterol @ 59 mg/dL (>40) 2 Chol/HDL Ratio 3.5 RATIO 3 LDL Chol (Calc) 128 mg/dL (<130) 4 Hemoglobin A1c 02/13/2017 Hemoglobin A1c @ 5.4 % (4.0-6.0) Est Average Glucose 108 mg/dL 5 Laboratory test finding 02/13/2017 TSH,Ultrasensitive @ 0.682 mIU/L ( 0.360-4.170) CMP 02/13/2017 Sodium 139 mmol/L (136-145) Potassium [...] >60 ml/min/1.73m2 (>59) GFR Interpretation <SEE NOTE> 6 CBC With Diff 02/13/2017 WBC 6.7 10*3/uL (4.1-11.0) RBC 4.91 10*6/uL (4.60-6.10) HGB 15.0 g/dL (13.5-18.0) HCT 44.3 % (41.0-53.0) MCV 90.4 fL (80.0-95.0) MCH 30.5 pg (27.0-32.0) MCHC 33.8 g/dL (32.0-36.0) RDW 14.0 % (10.5-14.5) PLT 355 10*3/uL (150-450) MPV 7.8 fL (7.1-10.7) Neut % 67.0 % (35.0-75.0) Lymph % 20.5 % (16.0-52.0) Dewey % 9.7 % High (0.0-8.0) Eos % 2.0 % (0.0-5.0) Baso % 0.8 % (0.0-4.0) Neut # 4.5 10*3/uL (1.8-7.7) Lymph # 1.4 10*3/uL (1.2-4.8) Dewey # 0.7 10*3/uL (0.0-0.8) Eos # 0.1 10*3/uL (0.0-0.5) Baso # 0.1 10*3/uL (0.0-0.2) CBC With Diff 02/15/2016 WBC 4.9 10*3/uL (4.1-11.0) RBC 4.73 10*6/uL (4.60-6.10) HGB 13.9 g/dL (13.5-18.0) HCT 43.2 % (41.0-53.0) MCV 91.4 fL (80.0-95.0) MCH 29.5 pg (27.0-32.0) MCHC 32.3 g/dL (32.0-36.0) RDW 14.0 % (10.5-14.5) PLT 324 10*3/uL (150-450) MPV 7.8 fL (7.1-10.7) Neut % 55.8 % (35.0-75.0) Lymph % 31.2 % (16.0-52.0) Dewey % 10.7 % High (0.0-8.0) Eos % 1.1 % (0.0-5.0) Baso % 1.2 % (0.0-4.0) Neut # 2.7 10*3/uL (1.8-7.7) Lymph # 1.5 10*3/uL (1.2-4.8) Dewey # 0.5 10*3/uL (0.0-0.8) Eos # 0.1 [...] % (35.0-75.0) Lymph % 24.4 % (16.0-52.0) Dewey % 10.0 % High (0.0-8.0) Eos % 1.5 % (0.0-5.0) Baso % 1.0 % (0.0-4.0) Neut # 3.7 10*3/uL (1.8-7.7) Lymph # 1.4 10*3/uL (1.2-4.8) Dewey # 0.6 10*3/uL (0.0-0.8) Eos # 0.1 [...] % (35.0-75.0) Lymph % 22.0 % (16.0-52.0) Dewey % 10.9 % High (0.0-8.0) Eos % 2.0 % (0.0-5.0) Baso % 0.8 % (0.0-4.0) Neut # 3.1 10*3/uL (1.8-7.7) Lymph # 1.1 10*3/uL Low (1.2-4.8) Dewey # 0.5 10*3/uL (0.0-0.8) Eos # 0.1 [...] % (35.0-75.0) Lymph % 21.1 % (16.0-52.0) Dewey % 11.4 % High (0.0-8.0) Eos % 2.0 % (0.0-5.0) Baso % 1.3 % (0.0-4.0) Neut # 4.2 10*3/uL (1.8-7.7) Lymph # 1.4 10*3/uL (1.2-4.8) Dewey # 0.7 10*3/uL (0.0-0.8) Eos # 0.1 [...] (>59) GFR Interpretation <SEE NOTE> 25 1 A REVIEW OF THE LITERATURE SUGGESTS THE FOLLOWING RANGES FOR THE CLASSIFICATION OF 25-OH VITAMIN D STATUS: VITAMIN D STATUS 25-OH VITAMIN D DEFICIENCY <20 NG/ML INSUFFICIENCY 20-30 NG/ML SUFFICIENCY 31 - 100 NG/ML TOXICITY > 100 NG/ML A PEDIATRIC REFERENCE RANGE HAS NOT BEEN ESTABLISHED USING THIS METHOD. 2 PER NCEP ATP III GUIDELINES: RESULTS LOWER THAN 40 MG/DL ARE SUGGESTIVE OF INCREASED RISK FOR CORONARY ARTERY DISEASE. RESULTS > OR=TO 60 MG/DL ARE CONSIDERED A NEGATIVE RISK FACTOR. 3 INTERPRETATION OF CHOL-HDL RATIO CHD RISK FEMALE MALE VERY HIGH >8.3 >14.3 HIGH 5.6- 8.3 6.7- 14.3 AVERAGE 3.7- 5.6 4.0- 6.7 BELOW AVERAGE 2.5- 3.7 2.7- 4.0 PROTECTED <2.5 <2.7 4 PER NCEP ATP III GUIDELINES: OPTIMAL < 100 NEAR OPTIMAL 100 - 129 BORDERLINE HIGH 130 - 159 HIGH 160 - 189 VERY HIGH > 189 5 HEMOGLOBIN A1c INTERPRETATION: 4.0-6.0% GOOD GLYCEMIC CONTROL 6.1-6.5% AT RISK FOR HYPERGLYCEMIA >6.5% DIABETIC/ POOR GLYCEMIC CONTROL REFERENCE: DIABETES CARE 32(7), 2008 IF A1c RESULT IS INCONSISTENT WITH CLINICAL ESTIMATES OF GLYCEMIC CONTROL, AN INTERFERING Hb VARIANT SHOULD BE CONSIDERED. 6 NORMAL KIDNEY FUNCTION OR MILD DISEASE - GFR >OR=60 CHRONIC KIDNEY DISEASE - GFR 15 - 59 RENAL FAILURE - GFR <15 Est. GFR calculation based on the MDRD study equation, which assumes a steady state for creatinine. Est. GFR should not be used for medication dosing. 7 NORMAL KIDNEY FUNCTION OR MILD DISEASE [...] OR ABSENCE OF MALIGNANT DISEASE. METHOD IS K[employer] ACCESS/Equidam EQUIMOLAR ASSAY. VALUES OBTAINED WITH DIFFERENT ASSAY [...] PREDICTIVE OF MYOCARDIAL INJURY THAN LESSER ELEVATIONS. ([facility] 361:9, 2009) 21 RELATIVE RISK [...] dosing. Procedures Date CPT Code Description Status 03/05/2018 94135 Visual Screening Test Completed 03/05/2018 32725 EKG Completed 03/05/2018 25300 Audiometry, Bekesy, Screening Completed 02/13/2017 04195 EKG Completed 09/30/2014 40800 EKG Completed Encounters Type Date Location Provider CPT E/M Dx Office Visit 03/05/2018 1:00p Guillermina Garcia M.D. 23744 I10 E78.2 M51.37 M15.9 R73.01 K21.0 M54.17 N40.1 E55.9 M25.512 K30 M25.519 M54.2 M79.605 R60.0 M79.606 M79.643 F43.21 M79.673 Z00.01 Office Visit 02/19/2018 2:00p Guillermina Garcia M.D. 87738 I10 E78.2 M51.37 M15.9 R73.01 K21.0 M54.17 N40.1 E55.9 M25.512 K30 M25.519 M54.2 M79.605 R60.0 M79.606 M79.643 F43.21 M79.673 Office Visit 01/17/2018 2:45p Guillermina Garcia M.D. 42607 I10 E78.2 M51.37 M15.9 R73.01 K21.0 M54.17 N40.1 E55.9 M25.512 K30 M25.519 M54.2 M79.605 R60.0 M79.606 M79.643 F43.21 M79.673 Office Visit 09/06/2017 2:00[place] [address] M51.37 M25.512 K30 M25.519 M54.2 I10 M79.605 R60.0 M79.606 M79.643 M15.9 R73.01 K21.0 M54.17 E78.2 E55.9 N40.1 F43.21 Office Visit 02/13/2017 9:15a Guillermina Garcia M.D. 37545 M51.37 M25.512 K30 M25.519 M54.2 I10 M79.605 R60.0 M79.606 M79.643 Z68.23 M15.9 R73.01 K21.0 M54.17 E78.2 E55.9 N40.1 F43.21 Z00.01 Office Visit 11/14/2016 3:15p Guillermina Garcia M.D. 30012 M51.37 M25.512 K30 M25.519 M54.2 I10 M79.605 R60.0 M79.606 M79.643 M15.9 R73.01 K21.0 M54.17 E78.2 E55.9 N40.1 Office Visit 03/13/2016 11:00a Fredy Quigley [facility] 03465 M51.37 M25.512 K30 M25.519 M54.2 I10 Office Visit 02/15/2016 9:15a Guillermina Garcia M.D. 95673 M51.37 M25.512 K30 M25.519 M79.605 R60.0 M54.2 I10 M79.606 M79.643 M15.9 R73.01 K21.0 M54.17 E78.2 E55.9 N40.1 Office Visit 01/18/2016 1:45p Guillermina Garcia M.D. 14868 M51.37 M25.512 K30 M25.519 M79.605 R60.0 M54.2 I10 M79.606 M79.643 M15.9 R73.01 K21.0 M54.17 Office Visit 12/22/2015 1:45p Fredy Quigley [facility] 95281 M51.37 M54.5 M25.512 K30 M25.519 Office Visit 11/15/2015 11:00a Guillermina Garcia M.D. 32290 M79.605 M51.37 M54.5 M25.512 K30 R60.0 M25.519 M54.2 I10 M79.606 G60.8 M79.643 M15.9 R73.01 K21.0 Office Visit 10/14/2015 11:15a Fredy Quigley [facility] 41555 K21.0 M79.605 M51.37 M54.5 M25.512 Office Visit 08/15/2015 8:30a Guillermina Garcia M.D. 44305 M79.605 M51.37 K21.0 K30 R60.0 M25.519 M54.5 M54.2 I10 M79.606 G60.8 M79.643 M15.9 R73.01 Office Visit 07/20/2015 2:00p Guillermina Garcia M.D. 82624 M79.605 M51.37 K21.0 K30 R60.0 M25.519 M54.5 M54.2 I10 M79.606 G60.8 M79.643 M15.9 Office Visit 06/21/2015 1:45p Fredy Quigley [facility] 83180 M25.512 M79.605 M51.37 K21.0 Office Visit 06/15/2015 11:30a Guillermina Garcia M.D. 04335 R60.0 M79.605 M51.37 K21.0 M25.519 M54.5 M54.2 I10 M79.606 G60.8 K30 M79.643 M15.9 Z23 Office Visit 05/04/2015 10:30a Guillermina Garcia M.D. 98341 R60.0 M51.37 K21.0 M25.519 M54.5 M54.2 I10 M79.606 G60.8 K30 M79.643 M15.9 Office Visit 03/30/2015 10:00a Guillermina Garcia M.D. 11630 782.3 722.52 530.11 719.41 724.2 723.1 401.1 729.5 356.8 Office Visit 02/23/2015 11:15a Fredy Quigley [facility] 16197 722.52 530.11 719.41 724.2 723.1 401.1 729.5 356.8 Office Visit 01/18/2015 11:00a Fredy Quigley [facility] 06611 724.2 722.52 723.1 401.1 530.11 Office Visit 12/14/2014 9:15a Guillermina Garcia M.D. 13618 724.2 722.52 723.1 719.41 729.5 401.1 356.8 530.11 536.8 719.44 Office Visit 11/22/2014 4:15p Guillermina Garcia M.D. 73569 724.2 722.52 723.1 719.41 729.5 401.1 356.8 530.11 536.8 719.44 Office Visit 11/04/2014 9:00a Guillermina Garcia M.D. 05952 724.2 722.52 723.1 719.41 729.5 356.8 401.1 530.11 536.8 786.59 Office Visit 09/30/2014 2:30p Fredy Quigley [facility] 10128 786.59 722.52 530.11 715.09 723.1 401.1 Office Visit 09/16/2012 3:15p Fredy Quigley [facility] 84229 473.8 724.2 715.09 Plan of Care 03/05/2018 - Guillermina Villagomez M.D.I10 Essential (primary) hypertensionComments: CHECK BP TIW ( PRN)F/U LABDIET AND FLUID COUNSELING LOW SODIUM DIETWT LOSSF/U LABFollow up:2 weeks.E78.2 Mixed hyperlipidemiaComments:DIET REVIEWED CONTINUE DIETWT LOSSF/U LAB FBWM51.37 Other intervertebral disc degeneration, lumbosacral regionNew Xrays:MRI, Spinal, Lumbar, W/O ContrastMRI, Spinal, Sacrum , W/O ContrastComments:EXERCISE/HEAT /MESSAGEAVOID HEAVY LIFTING WT LOSSTYLENOL OR MOTRIN PRN DUR GKOTTDOJ20.9 Polyosteoarthritis, unspecifiedComments: EXERCISE/HEAT/MESSAGETYLENOL OR MOTRIN PRNAVOID HEAVY LIFTINGWT LOSS DUR BHBSCAFK80.01 Impaired fasting glucoseComments:F/U HGAICFS QAC AN HS PRNLOW GLUCOSE DIETK21.0 Gastro-esophageal reflux disease with esophagitisComments: AVOID CAFFEINE, ETOH AND SPICY FOODSTUMS OR MYLANTA PRN CALL WITH PROBLEMS OR LTVCBYRXA87.17 Radiculopathy, lumbosacral regionComments:EXERCISE/HEAT /MESSAGE AVOID HEAVY LIFTING WT LOSS TYLENOL OR MOTRIN PRNN40.1 Benign prostatic hyperplasia with lower urinary tract sympComments:AKZKIMUZ59.9 Vitamin D deficiency, unspecifiedComments:INCREASE EXPOSURE TO SUNREVIEW OF DIETM25.512 Pain in left shoulderComments:(S/P L SHOILDER ROTATOR CUFF TEAR REPAIR 08/01/15 -- WC CASE)K30 Functional dyspepsiaComments:AVOID CAFFEINE, ETOH AND SPICY FOODSTUMS OR MYLANTA PRN CALL WITH PROBLEMS OR UOXBRRFKP26.519 Pain in unspecified shoulderComments:EXERCISE/HEAT /MESSAGE AVOID HEAVY LIFTINGTYLENOL OR MOTRIN PRN DUR LRESIHXC57.2 CervicalgiaComments:EXERCISE/HEAT / MESSAGEAVOID HEAVY LIFTING WT LOSSTYLENOL OR MOTRIN PRN DUR SXSBSTKW26.605 Pain in left legComments:TYLENOL OR MOTRIN PRN EXERCISE/HEAT/MESSAGE DUR EILYMYEV98.0 Localized edemaComments:ELEVATE LE PRNELASTIC STOCKING / BRI WRAP PRNF/U LAB GWTYLEQ50.606 Pain in leg, unspecifiedComments:TYLENOL OR MOTRIN PRN EXERCISE/HEAT/MESSAGE DUR LPAHEYPX23.643 Pain in unspecified handComments: EXERCISE/HEAT/MESSAGETYLENOL OR MOTRIN PRNAVOID HEAVY LIFTINGWT LOSS DUR KDDUAZBM06.21 Adjustment disorder with depressed moodComments:COUNCELLING AND REASSURANCE EXTENDED RELAXATION TECHNIQUES DISCUSSED COUNSELED RE: STRESSORS IN LIFEM79.673 Pain in unspecified footComments:TYLENOL OR MOTRIN PRN EXERCISE/ HEAT/MESSAGE DUR ZSJDSLKU73.01 Encounter for general adult medical exam w abnormal findingsComments:GOOD NUTRITION /EXERCISEDENTAL/ FLOSSING/ SELF CAREDROWNING/ SUN SAFETYSEAT BELT/ DRIVING SAFETYSPORT BIKE/ HELMET USESPORTS/ INJURY PREVENTIONVIOLENCE PREVENTION/ GUN SAFETYPARENTING ADVICE"SAFE AT HOME "SEX EDUCATION/ COUNSELINGBREAST/ TESTICULAR SELF EXAMEDUCATION GOALS/ ACTIVITIESLIMIT TV/ INTERNETUSETOBACCO/ ALCOHOL/ DRUGS/ INHALANTSPEER REFUSAL SKILLSSOCIAL INTERACTIONFAMILY FUNCTIONINGSELF CONTROLDEPRESSION/ ANXIETYNEXT APPOINTMENTYEARLY PHYSICAL WELLNESS EVALUATION
[2018-03-07 15:41] VITALS: BP 98/68
--- NOTE | 2018-03-07 15:52 | UC ---
Skin Complaint HPI - HPI Summary HPI Summary: 57 yo gentleman presents for removal of sutures, placed 02/25/18. Initial wounding event d/t mirror falling onto anterior tibia. Tet booster at time of suture placement. No fever /chills. No sob / cp / palpitations. Notes some redness around the wound. No foul odor / purulence. 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 Does not wear compression, nor elevates. Takes abx as prescribed but also taking omeprazole. Nondiabetic. No p/d/w. - History of Current Complaint Chief Complaint: UCSkin Time Seen by Provider: 03/07/18 15:37 Stated Complaint: STITCH REMOVAL Hx Obtained From: Patient Pain Intensity: 0 - Allergy/Home Medications Allergies/Adverse Reactions: Allergies Allergy/AdvReac Type Severity Reaction Status Date / Time No Known Allergies Allergy Verified 03/07/18 15:41 Review of Systems Constitutional: Negative Skin: Other - see hpi ENT: Negative Respiratory: Negative Cardiovascular: Negative Gastrointestinal: Negative Genitourinary: Negative Motor: Other - see hpi Neurovascular: Other - see hpi Neurological: Other Psychological: Negative Is Patient Immunocompromised?: No All Other Systems Reviewed And Are Negative: Yes PMH/Surg Hx/FS Hx/Imm Hx - Surgical History Surgical History: Yes Surgery Procedure, Year, and Place: back surgery - Family History Known Family History: Positive: Cardiac Disease - Social History Alcohol Use: Rare Substance Use Type: Marijuana Substance Use Comment - Amount & Last Used: daily usage Smoking Status (MU): Never Smoked Tobacco - Immunization History Most Recent Tetanus Shot: 04/03/16 Physical Exam Triage Information Reviewed: Yes Appearance: Well-Appearing, Well-Nourished Vital Signs: Initial Vital Signs Temp 98.5 F 03/07/18 15:37 Pulse 109 03/07/18 15:37 Resp 16 03/07/18 15:37 BP 98/68 03/07/18 15:37 Pulse Ox 97 03/07/18 15:37 Vital Signs Reviewed: Yes ENT Exam: Normal - grossly normal Neck exam: Normal - no c/os Respiratory Exam: Normal Respiratory: Positive: Chest non-tender, Lungs clear, Normal breath sounds, No respiratory distress Cardiovascular Exam: Normal Cardiovascular: Positive: Pulses Normal Abdominal Exam: Normal Abdomen Description: Positive: Nontender Musculoskeletal Exam: Other - See "skin" re wound description. Both Lower ext' s with venous varicosities, scattered hemosiderosis, evidence of chronic venous hypertension. LLE + edema. No sona's or venous cord. Neurological Exam: Normal - grossly nonfocal Psychological Exam: Normal - conversing easily and appropriately Skin Exam: Other - Left ant tibia mid-low region: + upsidedown "V" shaped wound , with sutures in place. These were removed by myself. There is moderate dark necrotic eschar approx 1.5cm at proximal "v." + redness - max diam approx 6.2cm W x 6.8cm. No crepitus. No mino fluctuance, no mino purulence noted or expressed. There is serous to serosanguinous drainage from wound. Foot warm to touch, dp and pt both palbable, cr good. Course/Dx - Course Course Of Treatment: Wound has dehisced. This is a problem-wound (can be classified as ulcer). Has compression stockings at home, but has not been using. Has not been elevating. The importance of compression and elevation was stressed. Indeed, without these, the wound will not heal, this was discussed with Keiry Darryn. Pulses are good, foot warm to touch. While dvt is in the differential, it is less likely, rather more c/w venous hypertension in the setting of dehisced wound. Advised not to take abx at the same time as omeprazole. Will switch to doxycycline (does have increased risk of mrsa). Abx IM ancef here. Does not want to go the hospital unless worse. Reviewed the importance of go directly to the ED if worse or new problems. Will schedule close f/u with pcp, will return for wound check in 2 days. Ultimately will benefit from wound clinic, he can obtain referral from pcp for wcc (he thinks he might be able to go to a clinic [place] to [place]). Questions as posed answered to the best of my ability. - Diagnoses Provider Diagnoses: Wound dehiscence. Chronic venous hypertension with lymphedema. Cellulitis Discharge - Sign-Out/Discharge Documenting (check all that apply): Patient Departure - Discharge Plan Condition: Stable Disposition: HOME Prescriptions: DOXYcycline CAP(*) [DOXYcycline 100MG CAP(*)] 100 mg PO BID #20 cap Patient Education Materials: Cellulitis (ED), Wound Dehiscence (ED), Venous Insufficiency (DC) Referrals: Guillermina Villagomez MD [Primary Care Provider] - Additional Instructions: Stop augmentin. Start doxycycline. Avoid prolonged sun exposure with doxycline. Do not take antibiotic within 2 hours of stomach medication (omeprazole). Return here for recheck in 2 days. If worse, or new problems including albeit not limited to worse redness, swelling, short of breath, palpitations / chest pain, then go to the Emergency Department. Schedule follow up with your doctor early next week. I recommend that you follow up with a Wound Clinic (Dr. Villagomez can give you a referral). - Billing Disposition and Condition Condition: STABLE Disposition: Home
[2018-03-07] MEDS ORDERED: ceFAZolin 500 MG VIAL(*) 500 MG VIAL IM ONE (16:06)
[2018-03-07] MEDS ORDERED: Bacitracin OINTMENT* 0.5% 0.5 oz TUBE TOPICAL ONE (16:07)
[2018-03-07] MEDS ORDERED: Mupirocin 2% OINT* TUBE TOPICAL ONE (16:20)
== END 2018-03-07 16:55 | disposition home or self-care (01) ==
LOC: UCCORT 14:30
DX: T81.33XD Disruption of traumatic injury wound repair, subsequent encounter (principal); I87.302 Chronic venous hypertension (idiopathic) without complications of left lower extremity; I89.0 Lymphedema, not elsewhere classified; L03.116 Cellulitis of left lower limb
CPT/HCPCS: 96372; 99212; G0463; J0690

== ENCOUNTER 2018-03-09 13:31 | Emergency (ER) | payer BC ==
[2018-03-09 13:47] VITALS: BP 122/74
--- NOTE | 2018-03-09 13:57 | UC ---
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 - History Of Current Complaint Chief Complaint: UCWounds Stated Complaint: RECHECK LEFT LEG WOUND Time Seen by Provider: 03/09/18 13:47 Hx Obtained From: Patient Onset/Duration: Sudden Onset, Lasting Weeks - 1 Severity: Mild Pain Intensity: 2 - Allergies/Home Medications Allergies/Adverse Reactions: Allergies Allergy/AdvReac Type Severity Reaction Status Date / Time No Known Allergies Allergy Verified 03/09/18 13:40 PMH/Surg Hx/FS Hx/Imm Hx Previously Healthy: Yes - Surgical History Surgical History: Yes Surgery Procedure, Year, and Place: back surgery - Family History Known Family History: Positive: Cardiac Disease - Social History Alcohol Use: Rare Substance Use Type: Marijuana Substance Use Comment - Amount & Last Used: occassionally Smoking Status (MU): Never Smoked Tobacco Household Exposure Type: Cigarettes - Immunization History Most Recent Tetanus Shot: 04/03/16 Review of Systems Constitutional: Negative Skin: Other - laceration Eyes: Negative ENT: Negative Respiratory: Negative Cardiovascular: Negative Gastrointestinal: Negative Genitourinary: Negative Motor: Negative Neurovascular: Negative Musculoskeletal: Negative Neurological: Negative Psychological: Negative Is Patient Immunocompromised?: No All Other Systems Reviewed And Are Negative: Yes Physical Exam Triage Information Reviewed: Yes Appearance: Well-Nourished, Pain Distress Vital Signs: Initial Vital Signs Temp 97.3 F 03/09/18 13:41 Pulse 106 03/09/18 13:41 Resp 16 03/09/18 13:41 BP 122/74 03/09/18 13:41 Pulse Ox 97 03/09/18 13:41 Vital Signs Reviewed: Yes ENT Exam: Normal Dental Exam: Normal Neck exam: Normal Neck: Positive: Supple, Nontender, No Lymphadenopathy Respiratory Exam: Normal Respiratory: Positive: Chest non-tender, Lungs clear, Normal breath sounds Cardiovascular Exam: Normal Cardiovascular: Positive: RRR, No Murmur, Pulses Normal Abdominal Exam: Normal Bowel Sounds: Positive: Present Musculoskeletal Exam: Normal Musculoskeletal: Positive: Strength Intact, ROM Intact, No Edema Neurological Exam: Normal Neurological: Positive: Alert, Muscle Tone Normal Psychological Exam: Normal Skin: Positive: significant lesion(s) - healing irregular shaped laceration on lower leg, no sign of infection Course/Dx - Course Course Of Treatment: hx obtained, exam peformed ,meds reviewed, no further treatment at this time. - Differential Dx - Laceration/Wound Differential Diagnoses: Healing Wound Provider Diagnoses: wound followup Discharge - Sign-Out/Discharge Documenting (check all that apply): Patient Departure - Discharge Plan Condition: Stable Disposition: HOME Patient Education Materials: Wound Healing and Your Diet (ED) Referrals: No Primary Care Phys,NOPCP [Primary Care Provider] - Additional Instructions: continue to cover when needed. soak once a day for healing promotion - Billing Disposition and Condition Condition: STABLE Disposition: Home Attestation Statement User Type: Provider - Attending Doctor: Sydnie Messina ([id number]) Chemical Preparer: Clarisa Atkinson ([id number]) Riffler Tender: LAVERN (NUANCE) Report Date: 11:45:00 Report Status: Final Begin of Report Content Patient Name: KAHLIL ROBISON Medical Record#: [id number] Ordering Physician: Sydnie Messina MD Acct.#: [id number] : 04/04/2008 Age: 9 Sex: M Location: [facility] Exam Date: 03/09 1145 ADM Status: REG ER Order Information: CHEST PA LAT 2 VWS Accession Number: [id number] CPT: 94318 Indication: Cough, fever. 2 views of the chest and shape no mediastinal shift. Heart is of normal size and configuration. Lung forbes are clear. IMPRESSION: No active cardiopulmonary disease is noted. ___ <Electronically signed by Clarisa Atkinson MD in OV> 03/09/181202 Dictated By: Clarisa Atkinson MD Dictated Date/Time: 03/09/181202 Transcribed Date/Time: 03/09/181202
== END 2018-03-09 14:14 | disposition home or self-care (01) ==
LOC: UCCORT 13:31
DX: Z09 Encounter for follow-up examination after completed treatment for conditions other than malignant neoplasm (principal)
CPT/HCPCS: 99211; G0463

== ENCOUNTER 2019-07-25 09:24 | Emergency (ER) | payer BC ==
--- NOTE | 2019-07-25 10:22 | UC ---
Upper Extremity HPI - HPI Summary HPI Summary: Per commercial producer: ""I got an arm that's been messed up." Coats like he pulled a muscle in his left forearm a couple months ago. While putting small pieces of wood in a box, pain moved into elbow and distal upper arm. "Feels like there's something out of place" with certain movements. Painful to pick things up. Patient has been trying not to lift heavy things and is already on "a lot of pain meds anyway". - pain occured a~ 1 mo ago when he was lifting something. pain mid flexor arm area with severe bruising localized in that area thereafter. that has resolved. still feels pain from his elbow to his shoulder. reports bicep tendon rupture with repair by Dr kern at [facility] in [place] about 1 yr ago. -denies numbing/tingling. no fevers/chills. -rt hand dominant. States his BP today is "low" for him at 137/101. takes meloxicam 15msg daily from pain center in [facility]. -uses medical MJ, gabapentin also -takes meloxicam 25mgs. His PCP tells him to take another 1-2 if BP is high daily, but he states that he feels fine the way it is and just keeps it at the 25mgs. -denies cp/sob/paliptations/lightheadedness, dizziness and WHITESIDE. - History of Current Complaint Chief Complaint: UCUpperExtremity Stated Complaint: LEFT ARM PAIN Time Seen by Provider: 07/25/19 10:13 Pain Intensity: 3 - Allergies/Home Medications Allergies/Adverse Reactions: Allergies Allergy/AdvReac Type Severity Reaction Status Date / Time No Known Allergies Allergy Verified 07/25/19 09:36 Home Medications: Home Medications Gabapentin CAP(*) [Neurontin 300 CAP(*)] 300 mg PO BID 07/25/19 [History Confirmed 07/25/19] Meloxicam(NF) [Mobic(NF)] 15 mg PO DAILY 07/25/19 [History Confirmed 07/25/19] Sertraline* [Zoloft*] 25 mg PO DAILY 07/25/19 [History Confirmed 07/25/19] Sildenafil Citrate [Viagra] 100 mg PO SEE INSTRUCTIONS PRN 07/25/19 [History Confirmed 07/25/19] PMH/Surg Hx/FS Hx/Imm Hx Previously Healthy: Yes Cardiovascular History: Hypertension - Surgical History Surgical History: Yes Surgery Procedure, Year, and Place: back surgery [id number] 1997. LEFT ANKLE REPAIR WITH HARDWARE 1985 - Family History Known Family History: Positive: Cardiac Disease - Social History Alcohol Use: Occasionally Substance Use Type: Marijuana Substance Use Comment - Amount & Last Used: Medical marijuana pen 25mg 6-8 puffs daily Smoking Status (MU): Never Smoked Tobacco Household Exposure Type: Cigarettes - Immunization History Most Recent Tetanus Shot: 04/03/16 Review of Systems All Other Systems Reviewed And Are Negative: Yes Constitutional: Positive: Negative. Negative: Fever, Chills Skin: Positive: Negative. Negative: Rash, Bruising Eyes: Positive: Negative ENT: Positive: Negative Respiratory: Positive: Negative. Negative: Shortness Of Breath Cardiovascular: Positive: Negative. Negative: Palpitations, Chest Pain Gastrointestinal: Positive: Negative Genitourinary: Positive: Negative Motor: Positive: Weakness. Negative: Decreased ROM Neurovascular: Positive: Negative. Negative: Decreased Sensation Musculoskeletal: Positive: Other: - see above Neurological: Positive: Negative. Negative: Weakness, Paresthesia, Numbness Psychological: Positive: Negative Is Patient Immunocompromised?: No Physical Exam Triage Information Reviewed: Yes Appearance: Well-Appearing, No Pain Distress, Well-Nourished - very pleasant Vital Signs: Initial Vital Signs Temp 97.8 F 07/25/19 09:33 Pulse 96 07/25/19 09:33 Resp 16 07/25/19 09:33 BP 137/101 07/25/19 09:33 Pulse Ox 98 07/25/19 09:33 Vital Signs Reviewed: Yes Eye Exam: Normal ENT Exam: Normal Neck exam: Normal Neck: Positive: Supple, Nontender, No Lymphadenopathy Respiratory Exam: Normal Respiratory: Positive: Lungs clear, Normal breath sounds, No respiratory distress, No accessory muscle use. Negative: Crackles, Rhonchi, Stridor, Wheezing Cardiovascular Exam: Normal Cardiovascular: Positive: RRR, Brisk Capillary Refill Abdominal Exam: Normal Abdomen Description: Positive: Nontender Musculoskeletal: Positive: Other: - left upper arm w/ wider girth mid upper arm comapred to left. tender over that area. no erythema, no brusing. CR brisk. sensation intact to light touch prox and distal. strength 4/5 left bicep/triecp , 5/5 on left bicep tricep. FROM left shoulder adn left elbow. Neurological Exam: Normal Psychological Exam: Normal Skin Exam: Normal Upper Extremity Course/Dx - Course Course Of Treatment: left humerus xray -neg. CD given to pt along with copy of report. -supsect remote left bicep tendon rupture w/ h/o repair of left bicep tendon rupture repair ~ 1 yr ago w/ Dr Kern at [facility]. recommend f/u with Dr Kern and he is agreeable. HTN: rpt BP manual by staff 134/92 left, 136/90 rt -he takes 25mgs losartan BID he reports. - increase to 50mgs BID until his already scheduled f/u on saturday for total of 100mgs daily with goal BP being les than 120/80 - Differential Dx/Diagnosis Differential Diagnosis/HQI/PQRI: Contusion, Strain, Sprain Provider Diagnosis: Left upper arm pain Discharge ED - Sign-Out/Discharge Documenting (check all that apply): Patient Departure All imaging exams completed and their final reports reviewed: Yes - Discharge Plan Condition: Stable Disposition: HOME Patient Education Materials: Chronic Hypertension (ED), Arm Pain (ED) Referrals: Guillermina Villagomez MD [Primary Care Provider] - Hardik Kern MD [Medical Doctor] - 1 Week Additional Instructions: I suspect that you may have ruptured your bicep tendon in your left arm. Please call Dr Kern's office to be seen hopefully this week or next. You can contact your pain specialists regarding further pain management. Ice and rest is recommended for pain. -We also talked bout your blood pressure being high on the 25mgs twice per day of losartan. You have a follow up with your PCP in 2 days. You should increase to 2 of the losartan pills twice daily to raise it to 100mgs daily and discuss that dose with your PCP at follow up. Uncontrolled blood pressure increases risks of stroke, heart attack, eye disease and kidney disease amongst many others. Your goal blood pressure should be less than 120/80 unless your PCP states otherwise. make sure you drink plenty of fluids to avoid any lightheadedness or dizziness. The blood pressure on repeat was 134/92 and 136/90 when done manually. -We have given you a CD with the xray images as well as a copy of the report. - Billing Disposition and Condition Condition: STABLE Disposition: Home
[2019-07-25 11:49] VITALS: BP 146/93
== END 2019-07-25 12:17 | disposition home or self-care (01) ==
LOC: UCCORT 09:24
DX: M79.602 Pain in left arm (principal); I10 Essential (primary) hypertension; Z79.899 Other long term (current) drug therapy
CPT/HCPCS: 99212; G0463